=== PATIENT | female | born 1970 | race Two or more races ===

== ENCOUNTER 2020-06-04 22:24 | Inpatient (IN) | payer OTHER ==
[~2020-06-04] VITALS: Ht 160 cm; Wt 80.0 kg
--- NOTE | 2020-06-04 23:15 | NUR ---
patient resting in bed in NAD. ambulated to bathroom with no issues. geophysical manager used with RN. c/o pain in lower abdomen and back. denies nausea at this time but states when pain increases, nausea will onset. urine bloody, dark in color. sent for UA. steady gait. stretcher in lowest position. call tovar in reach. will continue to monitor.
[2020-06-04 23:52] LABS: BASOPHILS % (AUTO) 1 % (0-1); EOSINOPHILS % (AUTO) 0 % (1-7); LYMPHOCYTES % (AUTO) 18 % (22-44); MEAN CORPUSCULAR HEMOGLOBIN 29.7 pg (27.0-34.8); MEAN CORPUSCULAR HGB CONC 33.8 g/dL (32.4-35.8); MEAN PLATELET VOLUME 8.8 fL (7.4-10.4); MONOCYTES % (AUTO) 7 % (2-9); NEUTROPHILS % (AUTO) 74 % (42-75); PLATELET COUNT 212 x10^3/uL (130-400); RED BLOOD COUNT 4.87 x10^6/uL (3.82-5.3); RED CELL DISTRIBUTION WIDTH 14.2 % (9.6-15.2)
[2020-06-05 00:02] LABS: MICROSCOPIC INDICATED
[2020-06-05 00:03] LABS: MD NO
[2020-06-05 00:12] LABS: ALANINE AMINOTRANSFERASE 34 U/L (12-78); ALBUMIN 3.7 g/dL (3.4-5.0); ANION GAP 8 mmol/L (5-15); CALCIUM 9.1 mg/dL (8.5-10.1); CHLORIDE 108 mmol/L (98-107); CREATININE 0.68 mg/dL (0.55-1.02)
[2020-06-05 00:14] LABS: ALKALINE PHOSPHATASE 93 U/L (45-117); BILIRUBIN,TOTAL 0.5 mg/dL (0.2-1.0); TOTAL PROTEIN 7.7 g/dL (6.4-8.2)
--- NOTE | 2020-06-05 00:17 | NUR ---
provider notified of lab calling and changing nitrites, urobilogen and ketones from positive to color interference.
[2020-06-05] MEDS ORDERED: CEFTRIAXONE PMX 1GM/50ML 50 ML IV ONE (00:30)
[2020-06-05] MEDS ORDERED: CEFTRIAXONE PMX 1GM/50ML 50 ML ONE (00:37)
[2020-06-05] MEDS ORDERED: MORPHINE SULFATE 4 MG/ML, 1ML ONE (00:42)
[2020-06-05] MEDS ORDERED: ONDANSETRON 2MG/ML, 2ML ONE (00:42)
[2020-06-05] MEDS ORDERED: MELA5TAB21 PO (00:53)
--- NOTE | 2020-06-05 00:55 | NUR ---
IVF started/dial a flow, abx infusing. Pt medicated for low back pain and headache. VSS. Hospitalist at bedside to admit pt.
--- NOTE | 2020-06-05 00:59 | NUR ---
Report to [facility] pt and all belongings tx to floor. VSS
[2020-06-05] MEDS ORDERED: ONDANSETRON 2MG/ML, 2ML IVPush PRN ×2 (01:00→01:30)
[2020-06-05] MEDS ORDERED: MORPHINE SULFATE 4 MG/ML, 1ML IVPush PRN (01:00)
[2020-06-05] MEDS ORDERED: SODIUM CHLORIDE 0.9% 1,000 ML IV ONE (01:00)
--- NOTE | 2020-06-05 01:01 | NUR ---
Report pain decrease after morphine but now feels dizzy s/p morphine. VSS
--- NOTE | 2020-06-05 01:04 | NUR ---
Pt ready for tx to floor.
[2020-06-05] MEDS ORDERED: DOCUSATE 100 MG CAPSULE PO PRN (01:30)
[2020-06-05] MEDS ORDERED: POLYETHYLENE GLYCOL 17 GM PACKET PO PRN (01:30)
[2020-06-05] MEDS ORDERED: BISACODYL 10 MG SUPP PR PRN (01:30)
[2020-06-05] MEDS ORDERED: PROMETHAZINE 25 MG/ML, 1ML IM PRN (01:30)
[2020-06-05] MEDS ORDERED: hydrALAzine 20 MG/ML, 1ML IVPush PRN (01:30)
[2020-06-05] MEDS ORDERED: SODIUM CHLORIDE 0.9% 1,000 ML IV SCH (01:30)
[2020-06-05] MEDS ORDERED: ONDANSETRON ODT 4 MG PO PRN (01:30)
[2020-06-05] MEDS ORDERED: morphine SULFATE 10 MG/ML, 1ML IVPush PRN (01:30)
[2020-06-05 01:33] VITALS: BP 124/74
[2020-06-05 06:00] LABS: BASOPHILS % (AUTO) 0 % (0-1); EOSINOPHILS % (AUTO) 1 % (1-7); LYMPHOCYTES % (AUTO) 25 % (22-44); MEAN CORPUSCULAR HEMOGLOBIN 29.6 pg (27.0-34.8); MEAN CORPUSCULAR HGB CONC 33.6 g/dL (32.4-35.8); MEAN PLATELET VOLUME 8.9 fL (7.4-10.4); MONOCYTES % (AUTO) 11 % (2-9); NEUTROPHILS % (AUTO) 63 % (42-75); PLATELET COUNT 207 x10^3/uL (130-400); RED BLOOD COUNT 4.28 x10^6/uL (3.82-5.3); RED CELL DISTRIBUTION WIDTH 14.4 % (9.6-15.2)
[2020-06-05 06:03] LABS: MD NO
[2020-06-05 06:14] LABS: CHLORIDE 107 mmol/L (98-107)
[2020-06-05 06:28] LABS: ALANINE AMINOTRANSFERASE 34 U/L (12-78); ALKALINE PHOSPHATASE 75 U/L (45-117); ANION GAP 8 mmol/L (5-15); BILIRUBIN,TOTAL 0.3 mg/dL (0.2-1.0); CALCIUM 8.7 mg/dL (8.5-10.1); CHOL/HDL RATIO 4.5; CHOLESTEROL, TOTAL 172 mg/dL (140-239); HDL CHOL % 22 % (28-40); HDL CHOLESTEROL (DIRECT) 38 mg/dL (40-60); LDL CHOLESTEROL,CALCULATED 109 mg/dL (54-169); LDL/HDL RATIO 2.9 (0.5-3.0); TOTAL PROTEIN 6.4 g/dL (6.4-8.2); TRIGLYCERIDES 124 mg/dL (50-200); VLDL CHOLESTEROL 25 mg/dL (0-25)
[2020-06-05 07:10] VITALS: BP 106/69
[2020-06-05] MEDS ORDERED: FLU VACC QS2020-21(6MOS UP)/PF 60MCG/0.5 ML SYR IM ONE (09:30)
[2020-06-05] MEDS: OXYcodone IR 5MG TABLET PO PRN ×2 (09:52→22:02)
[2020-06-05 13:50] VITALS: BP 111/70
[2020-06-05] MEDS ORDERED: LEVOFLOXACIN/PMX 750MG/150ML 150 ML IV ONE (15:30)
[2020-06-05] MEDS ORDERED: DIPHENHYDRAMINE 50 MG/ML, 1ML IVPush PRN (15:30)
[2020-06-05 21:06] VITALS: BP 137/78
[2020-06-05] MEDS: ACETAMINOPHEN 325 MG TABLET PO PRN (22:02)
[2020-06-06] MEDS: CEFTRIAXONE PMX 2GM/50ML 50 ML IVPB SCH (02:41)
[2020-06-06] MEDS: OXYcodone IR 5MG TABLET PO PRN ×2 (03:26→19:35)
[2020-06-06] MEDS: ACETAMINOPHEN 325 MG TABLET PO PRN ×3 (03:26→19:35)
[2020-06-06 07:25] VITALS: BP 132/78
[2020-06-06] MEDS: LEVOTHYROXINE 100 MCG TABLET PO SCH (07:36)
[2020-06-06] MEDS ORDERED: KETOROLAC 30 MG/1 ML IVPush PRN (08:00)
[2020-06-06 13:01] LABS: MICROSCOPIC NOT IND
[2020-06-06] MEDS ORDERED: LORazepam 2 MG/ML, 1ML IVPush ONE (14:30)
[2020-06-06] MEDS: LIDODERM 5% PATCH TD SCH (14:52)
[2020-06-06] MEDS ORDERED: LIDODERM REMOVE PATCH NOTE XX SCH (15:00)
[2020-06-06 15:50] VITALS: BP 135/81
[2020-06-06 17:42] LABS: FREE T4 (FREE THYROXINE) 1.25 ng/dL (0.76-1.46); TROPONIN I < 0.015 ng/mL (0.000-0.045)
[2020-06-06 19:16] VITALS: BP 146/87
[2020-06-07] MEDS: CEFTRIAXONE PMX 2GM/50ML 50 ML IVPB SCH (00:48)
[2020-06-07 00:53] VITALS: BP 124/72
[2020-06-07] MEDS: LEVOTHYROXINE 100 MCG TABLET PO SCH (06:25)
[2020-06-07 07:22] VITALS: BP 146/90
[2020-06-07] MEDS ORDERED: DICL50TA2 PO (08:20)
[2020-06-07] MEDS ORDERED: LIDO700A20 TD (08:20)
[2020-06-07] MEDS ORDERED: CEFD300C37 PO (08:20)
[2020-06-07] MEDS: LIDODERM 5% PATCH TD SCH (13:04)
== END 2020-06-07 14:47 | disposition home or self-care (01) | DRG 690 ==
LOC: ED 23:38 → EDIP 06-05 00:45 → 3N 06-05 01:27 → DCLOUNGE 06-07 14:41
PROVIDERS: ADMIT Internal Medicine; ATTEND Hospitalist
DX: N39.0 Urinary tract infection, site not specified (principal); I10 Essential (primary) hypertension; Z20.822 Contact with and (suspected) exposure to COVID-19; M77.9 Enthesopathy, unspecified; M75.110 Incomplete rotator cuff tear or rupture of unspecified shoulder, not specified as traumatic; E66.9 Obesity, unspecified; Z68.31 Body mass index [BMI] 31.0-31.9, adult; Z88.8 Allergy status to other drugs, medicaments and biological substances; E03.9 Hypothyroidism, unspecified; B96.89 Other specified bacterial agents as the cause of diseases classified elsewhere; R31.9 Hematuria, unspecified
CPT/HCPCS: 36415; 72141; 80053; 80061; 81001; 81003; 83036; 83735; 84439; 84443; 84484; 85025; 87077; 87086; 87186; 90686; 93005; G0378; J0696; J1956; J2405; J1200; J2060; J2270; J7030

== ENCOUNTER 2020-10-11 10:03 | Emergency (ER) | payer SELFPAY ==
[~2020-10-11] VITALS: Ht 160 cm; Wt 94.5 kg
[~2020-10-11 10:03] MED LIST: CEFD300C37 PO; DICL50TA2 PO; FOSF3PAC PO; LIDO700A20 TD; MELA5TAB21 PO
[2020-10-11 10:40] LABS: BASOPHILS % (AUTO) 0 % (0-1); EOSINOPHILS % (AUTO) 1 % (1-7); LYMPHOCYTES % (AUTO) 24 % (22-44); MEAN CORPUSCULAR HEMOGLOBIN 29.9 pg (27.0-34.8); MEAN CORPUSCULAR HGB CONC 33.8 g/dL (32.4-35.8); MEAN PLATELET VOLUME 8.8 fL (7.4-10.4); MONOCYTES % (AUTO) 5 % (2-9); NEUTROPHILS % (AUTO) 70 % (42-75); PLATELET COUNT 233 x10^3/uL (130-400); RED BLOOD COUNT 5.06 x10^6/uL (3.82-5.3); RED CELL DISTRIBUTION WIDTH 14.3 % (9.6-15.2)
[2020-10-11 10:49] LABS: ALANINE AMINOTRANSFERASE 51 U/L (12-78); ALBUMIN 3.7 g/dL (3.4-5.0); ANION GAP 6 mmol/L (5-15); CALCIUM 9.4 mg/dL (8.5-10.1); CHLORIDE 105 mmol/L (98-107); CREATININE 0.58 mg/dL (0.55-1.02)
[2020-10-11 10:50] LABS: MD NO
[2020-10-11 10:53] LABS: ALKALINE PHOSPHATASE 104 U/L (45-117); BILIRUBIN,TOTAL 0.4 mg/dL (0.2-1.0); TOTAL PROTEIN 7.9 g/dL (6.4-8.2)
--- NOTE | 2020-10-11 11:13 | NUR ---
[employer] SALES REPRESENTATIVE: PT AMBULATORY TO ROOM FROM LOBBY AT THIS TIME
--- NOTE | 2020-10-11 11:17 | NUR ---
THIS IS A 50 YEAR OLD FEMALE WHO C.O VOIDING BLOOD AND HAVING PAIN IN LOWER BACK AND RIGHT FLANK STARTED TODAY AROUND 0600AM. SISTER AT BS TRANSLATING, OBTAINED UA, SENT TO LAB
[2020-10-11 11:59] LABS: MICROSCOPIC INDICATED
[2020-10-11] MEDS ORDERED: KETOROLAC 30 MG/1 ML IM ONE (12:00)
[2020-10-11] MEDS ORDERED: KETOROLAC 30 MG/1 ML ONE (12:04)
--- NOTE | 2020-10-11 12:08 | NUR ---
MEDICATED FOR PAIN PER ORDERS, PT VERBALZIED NO OTHER NEEDS AT THIS TIME
[2020-10-11] MEDS ORDERED: CEFTRIAXONE 1,000 MG IM ONE (13:00)
[2020-10-11] MEDS ORDERED: CEFTRIAXONE 1,000 MG ONE (13:01)
--- NOTE | 2020-10-11 13:46 | NUR ---
PT TO CT SCAN VIA [facility]
--- NOTE | 2020-10-11 14:17 | NUR ---
AWAITING CT SCAN, PT RESTING VERBALIZED UNDERSTANDING
--- NOTE | 2020-10-11 15:13 | NUR ---
Patient/Caregiver given discharge instructions and they have confirmed that they understand the instructions. Patient ambulatory with steady gait.
[2020-10-11 15:14] VITALS: BP 171/81
== END 2020-10-11 15:15 | disposition home or self-care (01) ==
LOC: ED 11:23
DX: N10 Acute pyelonephritis (principal); N39.0 Urinary tract infection, site not specified; I10 Essential (primary) hypertension
CPT/HCPCS: 36415; 74176; 80053; 81001; 83690; 84703; 85025; 87077; 87086; 96372; 99285; J0696; J1885; 87186